=== PATIENT | male | born 1975 | race African-American/Black ===

== ENCOUNTER 2022-07-02 09:59 | Emergency (ER) | payer OTHER ==
[~2022-07-02] VITALS: Ht 188 cm; Wt 86.2 kg
[2022-07-02 10:08] VITALS: BP 160/98
--- NOTE | 2022-07-02 11:24 | NUR ---
PRESENTS TO ED REQUESTING MED REFILL FOR THE FOLLOWING MEDS: ALOGLIPTIN 6.25MG, DIGOXIN 0.125MG, ELIQUIS 2.5MG AND AMLODIPINE UNKNOWN DOSE PER PT HE'S IN BETWEEN DOCTORS AT THE MOMENT AND DOES NOT HAVE ANY MEDICATION NKA PMH: CHF, DM, HTN
--- NOTE | 2022-07-02 11:24 | NUR ---
PT AMBULATED TO [facility]
--- NOTE | 2022-07-02 11:30 | NUR ---
SEEN BY DR GALVEZ IN CHAIR
[2022-07-02] MEDS ORDERED: AMLO10TA PO (11:40)
[2022-07-02] MEDS ORDERED: DIGO0.122 PO (11:40)
[2022-07-02] MEDS ORDERED: APIX2.5 PO (11:40)
[2022-07-02] MEDS ORDERED: ALOG12.5 PO (11:40)
[2022-07-02 11:46] VITALS: BP 160/98
--- NOTE | 2022-07-02 11:46 | NUR ---
Patient discharged with v/s stable. Written and verbal after care instructions given and explained. Patient alert, oriented and verbalized understanding of instructions. Ambulatory with steady gait. All questions addressed prior to discharge. ID band removed. Patient advised to follow up with PMD. Rx of NESINA, NORVASC, ELIQUIS, LANOXIN given. Patient educated on indication of medication including possible reaction and side effects. Opportunity to ask questions provided and answered.
== END 2022-07-02 11:46 | disposition home or self-care (01) ==
LOC: MED 09:59
DX: I11.0 Hypertensive heart disease with heart failure (principal); I50.9 Heart failure, unspecified; E11.9 Type 2 diabetes mellitus without complications; Z76.0 Encounter for issue of repeat prescription; Z79.899 Other long term (current) drug therapy; Z79.01 Long term (current) use of anticoagulants
CPT/HCPCS: 99281

== ENCOUNTER 2023-08-05 23:42 | Emergency (ER) | payer MEDICAID ==
[~2023-08-05] VITALS: Ht 188 cm; Wt 83.9 kg
[2023-08-05 23:42] VITALS: BP 180/117; PULSE 88; RESP 16; TEMP 97.8; O2SAT 98
[~2023-08-05 23:42] MED LIST: ALOG12.5 PO; AMLO10TA PO; APIX2.5 PO; DIGO0.122 PO
[2023-08-06] MEDS ORDERED: amLODIPine 5 MG TAB PO ONE (01:20)
[2023-08-06] MEDS ORDERED: CLONIDINE HYDROCHLORIDE 0.1 MG TAB PO ONE (01:45)
[2023-08-06 02:44] VITALS: BP 193/125; PULSE 88
[2023-08-06] MEDS ORDERED: hydrALAZINE 25 MG TAB PO SCH (02:55)
[2023-08-06] MEDS ORDERED: hydrALAZINE 10 MG TAB ONE (03:02)
== END 2023-08-06 03:13 | disposition left against medical advice (07) ==
LOC: MED 23:42
DX: I10 Essential (primary) hypertension (principal); E11.9 Type 2 diabetes mellitus without complications; Z79.4 Long term (current) use of insulin; Z79.899 Other long term (current) drug therapy
CPT/HCPCS: 99284